=== PATIENT | male | born 1970 | race Caucasian/White ===

== ENCOUNTER 2021-01-21 07:43 | Inpatient (IN) | payer OTHER ==
[~2021-01-21] VITALS: Ht 165.1 cm; Wt 90.7 kg
[2021-01-21] MEDS ORDERED: DEXAMETHASONE SOD PHOS 10 MG/1 ML VIAL IV STA (07:52)
[2021-01-21] MEDS ORDERED: ASPIRIN 81 MG CHEW TAB PO ONE (08:00)
[2021-01-21] MEDS ORDERED: PIPERACILLIN/TAZOBAC 3.375 GM in SODIUM CHLORIDE 0.9% 50ML 50 ML IV SCH (08:00)
[2021-01-21] MEDS ORDERED: SODIUM CHLORIDE 0.9% 1000ML 1,000 ML IV STA ×2 (08:01)
[2021-01-21 08:20] LABS: BASOPHILS % 0.3 % (0.0-1.0); EOSINOPHILS # (AUTO) 0.1 (0.0-0.4); EOSINOPHILS % 1.4 % (0.0-6.0); HEMATOCRIT 40.7 % (38.2-49.6); HEMOGLOBIN 13.7 g/dL (14.0-18.0); LYMPHOCYTES # (AUTO) 1.4 (1.0-3.2); LYMPHOCYTES % 20.4 % (18.0-39.1); MEAN CORPUSCULAR HEMOGLOBIN 28.8 pg (28-32); MEAN CORPUSCULAR HGB CONC 33.7 g/dL (31-35); MEAN CORPUSCULAR VOLUME 85.5 fL (81-99); MONOCYTES # (AUTO) 0.4 (0.2-0.8); NEUTROPHILS % 72.3 % (38.7-80.0); PLATELET COUNT 281 x10e3/uL (140-360); RED BLOOD COUNT 4.76 x10e6/uL (4.3-5.7); RED CELL DISTRIBUTION WIDTH 12.3 % (11.7-14.4)
[2021-01-21 08:42] LABS: ALANINE AMINOTRANSFERASE 85 IU/L (0-55); ALBUMIN/GLOBULIN RATIO 0.7 (0.8-2.0); ALKALINE PHOSPHATASE 65 IU/L (40-150); ANION GAP 15.2 mmol/L (8-16); BLOOD UREA NITROGEN 17 mg/dL (7-26); BUN/CREATININE RATIO 24 (6-25); CALCIUM 8.7 mg/dL (8.4-10.2); CARBON DIOXIDE 27 mmol/L (22-29); CHLORIDE 103 mmol/L (98-107); CREATINE KINASE 50 IU/L (30-200); CREATININE, SERUM 0.71 mg/dL (0.72-1.25); EST GLOMERULAR FILTRATION RATE > 60 ML/MIN (60-); GLUCOSE 121 mg/dL (74-118); POTASSIUM 3.2 mmol/L (3.5-5.1); SODIUM 142 mmol/L (136-145)
[2021-01-21 09:05] LABS: ABG HCO3 25 mmol/L (22-26); ABG PCO2 37 mmHg (35-45); ABG PH 7.43 (7.35-7.45); ABG PO2 65 mmHg (80-105); ABG TCO2 26
[2021-01-21] MEDS ORDERED: KETOROLAC TROMETHAMINE 30 MG/ML VIAL IV STA (09:14)
[2021-01-21] MEDS ORDERED: GUAIFENESIN/CODEINE 10 ML CUP PO PRN (10:30)
[2021-01-21] MEDS: ENOXAPARIN SOD INJ 40 MG/0.4 ML SYR SC SCH ×2 (11:09→21:11)
[2021-01-21] MEDS: CEFTRIAXONE SOD 1 GM in SODIUM CHLORIDE 0.9% 50ML 50 ML IV SCH (11:09)
[2021-01-21] MEDS: AZITHROMYCIN 500MG/NS 250 ML 250 ML IV SCH (11:09)
[2021-01-21 11:45] VITALS: BP 137/76
[2021-01-21 11:50] VITALS: BP 137/76
[2021-01-21] MEDS ORDERED: SODIUM CHLORIDE 0.9% 250ML 250 ML ONE (12:31)
[2021-01-21] MEDS ORDERED: REMDESIVIR 200MG/NS 100ML 200 MG in SODIUM CHLORIDE 0.9% 100 ML 100 ML IV ONE (13:00)
[2021-01-21] MEDS ORDERED: POTASSIUM CHLORIDE 10MEQ EA PO ONE (15:15)
[2021-01-21] MEDS ORDERED: ACETAMINOPHEN 325 MG TAB PO PRN (15:15)
[2021-01-21 15:55] VITALS: BP 157/86
[2021-01-21 16:45] VITALS: BP 157/86
[2021-01-21 17:53] LABS: CREATINE KINASE MB 0.5 ng/mL (0-5.0)
[2021-01-21 20:00] VITALS: BP 142/83
[2021-01-21] MEDS ORDERED: ZOLPIDEM TARTRATE 5 MG TAB PO PRN (21:00)
[2021-01-22 02:05] LABS: CREATINE KINASE MB 0.5 ng/mL (0-5.0)
[2021-01-22 06:08] LABS: BASOPHILS % 0.1 % (0.0-1.0); HEMATOCRIT 41.3 % (38.2-49.6); HEMOGLOBIN 13.9 g/dL (14.0-18.0); LYMPHOCYTES % 23.9 % (18.0-39.1); MEAN CORPUSCULAR HEMOGLOBIN 28.7 pg (28-32); MEAN CORPUSCULAR HGB CONC 33.7 g/dL (31-35); MEAN CORPUSCULAR VOLUME 85.3 fL (81-99); MONOCYTES # (AUTO) 0.4 (0.2-0.8); MONOCYTES % 4.9 % (4.4-11.3); NEUTROPHILS # (AUTO) 5.7 (2.1-6.9); NEUTROPHILS % 70.1 % (38.7-80.0); PLATELET COUNT 321 x10e3/uL (140-360); RED BLOOD COUNT 4.84 x10e6/uL (4.3-5.7); RED CELL DISTRIBUTION WIDTH 11.9 % (11.7-14.4)
[2021-01-22 06:40] LABS: ALANINE AMINOTRANSFERASE 75 IU/L (0-55); ALBUMIN 2.8 g/dL (3.5-5.0); ALBUMIN/GLOBULIN RATIO 0.7 (0.8-2.0); ALKALINE PHOSPHATASE 65 IU/L (40-150); ANION GAP 14.7 mmol/L (8-16); BLOOD UREA NITROGEN 13 mg/dL (7-26); BUN/CREATININE RATIO 20 (6-25); CALCIUM 8.6 mg/dL (8.4-10.2); CARBON DIOXIDE 24 mmol/L (22-29); CHLORIDE 107 mmol/L (98-107); CREATININE, SERUM 0.66 mg/dL (0.72-1.25); EST GLOMERULAR FILTRATION RATE > 60 ML/MIN (60-); GLUCOSE 87 mg/dL (74-118); POTASSIUM 3.7 mmol/L (3.5-5.1); SODIUM 142 mmol/L (136-145)
[2021-01-22 07:46] VITALS: BP 125/73
[2021-01-22 07:52] VITALS: BP 125/73
[2021-01-22] MEDS ORDERED: CEFTRIAXONE SOD 1 GM/50 ML BAG IV SCH (09:00)
[2021-01-22 09:31] LABS: LYMPHOCYTES % (MANUAL) 21 % (19-48); MONOCYTES % (MANUAL) 3 % (3.4-9.0); NEUTROPHILS % (MANUAL) 73 % (40-74)
[2021-01-22] MEDS: ENOXAPARIN SOD INJ 40 MG/0.4 ML SYR SC SCH ×2 (09:48→21:00)
[2021-01-22] MEDS: DEXAMETHASONE SOD PHOS 10 MG/1 ML VIAL IV SCH (09:48)
[2021-01-22] MEDS: ZINC SULFATE 220 MG CAP PO SCH (09:48)
[2021-01-22] MEDS: AZITHROMYCIN 500MG/NS 250 ML 250 ML IV SCH ×2 (09:48→09:58)
[2021-01-22] MEDS ORDERED: CEFTRIAXONE SOD 1 GM VIAL ONE (12:07)
[2021-01-22] MEDS ORDERED: SODIUM CHLORIDE 0.9% 50ML 50 ML ONE (12:08)
[2021-01-22] MEDS: CEFTRIAXONE SOD 1 GM in SODIUM CHLORIDE 0.9% 50ML 50 ML IV SCH (12:11)
[2021-01-22 14:01] LABS: CHOL/HDL RATIO 4.9 (3.9-4.7)
[2021-01-22] MEDS: REMDESIVIR 100MG/NS 100ML 100 MG IV SCH (15:30)
[2021-01-22 17:50] VITALS: BP 125/73
[2021-01-22 20:00] VITALS: BP 125/73
[2021-01-22 21:40] VITALS: BP 130/80
[2021-01-23] VITALS (7 sets, daily range): BP systolic 120–140; BP diastolic 65–79
[2021-01-23] MEDS: ZINC SULFATE 220 MG CAP PO SCH (08:00)
[2021-01-23] MEDS: DEXAMETHASONE SOD PHOS 10 MG/1 ML VIAL IV SCH (08:00)
[2021-01-23] MEDS: ENOXAPARIN SOD INJ 40 MG/0.4 ML SYR SC SCH ×2 (08:00→21:00)
[2021-01-23] MEDS: AZITHROMYCIN 500MG/NS 250 ML 250 ML IV SCH (10:44)
[2021-01-23] MEDS ORDERED: CEFTRIAXONE SOD 1 GM VIAL ONE (12:50)
[2021-01-23] MEDS ORDERED: SODIUM CHLORIDE 0.9% 50ML 50 ML ONE (12:51)
[2021-01-23] MEDS: CEFTRIAXONE SOD 1 GM in SODIUM CHLORIDE 0.9% 50ML 50 ML IV SCH (12:55)
[2021-01-23] MEDS: REMDESIVIR 100MG/NS 100ML 100 MG IV SCH (14:12)
[2021-01-23] MEDS: LACTOBACILLUS ACIDOPHILUS CAPSULE PO SCH (16:53)
[2021-01-24] VITALS (9 sets, daily range): BP systolic 102–130; BP diastolic 62–82
[2021-01-24 06:38] LABS: ALANINE AMINOTRANSFERASE 75 IU/L (0-55); ALBUMIN 2.8 g/dL (3.5-5.0); ALBUMIN/GLOBULIN RATIO 0.8 (0.8-2.0); ALKALINE PHOSPHATASE 60 IU/L (40-150); BLOOD UREA NITROGEN 16 mg/dL (7-26); BUN/CREATININE RATIO 24 (6-25); CALCIUM 8.2 mg/dL (8.4-10.2); CARBON DIOXIDE 27 mmol/L (22-29); CHLORIDE 106 mmol/L (98-107); CREATININE, SERUM 0.67 mg/dL (0.72-1.25); EST GLOMERULAR FILTRATION RATE > 60 ML/MIN (60-); GLUCOSE 65 mg/dL (74-118); SODIUM 140 mmol/L (136-145)
[2021-01-24] MEDS: DEXAMETHASONE SOD PHOS 10 MG/1 ML VIAL IV SCH (08:02)
[2021-01-24] MEDS: ENOXAPARIN SOD INJ 40 MG/0.4 ML SYR SC SCH ×2 (08:02→21:11)
[2021-01-24] MEDS: ZINC SULFATE 220 MG CAP PO SCH (08:02)
[2021-01-24] MEDS: LACTOBACILLUS ACIDOPHILUS CAPSULE PO SCH ×2 (08:02→16:53)
[2021-01-24] MEDS: AZITHROMYCIN 500MG/NS 250 ML 250 ML IV SCH (10:51)
[2021-01-24] MEDS: CEFTRIAXONE SOD 1 GM in SODIUM CHLORIDE 0.9% 50ML 50 ML IV SCH (13:00)
[2021-01-24] MEDS ORDERED: CEFTRIAXONE SOD 1 GM VIAL ONE (13:18)
[2021-01-24] MEDS: REMDESIVIR 100MG/NS 100ML 100 MG IV SCH (14:24)
[2021-01-25 04:00] VITALS: BP_SYST 113; BP_SYST 120; BP_DIAS 64; BP_DIAS 65
[2021-01-25 08:00] VITALS: BP 115/71
[2021-01-25] MEDS: ZINC SULFATE 220 MG CAP PO SCH (08:57)
[2021-01-25] MEDS: LACTOBACILLUS ACIDOPHILUS CAPSULE PO SCH (08:57)
[2021-01-25] MEDS: DEXAMETHASONE SOD PHOS 10 MG/1 ML VIAL IV SCH (08:57)
[2021-01-25] MEDS: ENOXAPARIN SOD INJ 40 MG/0.4 ML SYR SC SCH (08:57)
[2021-01-25 09:07] VITALS: BP 113/64
[2021-01-25 11:38] VITALS: BP 104/53
[2021-01-25] MEDS: AZITHROMYCIN 500MG/NS 250 ML 250 ML IV SCH (11:39)
[2021-01-25] MEDS: CEFTRIAXONE SOD 1 GM in SODIUM CHLORIDE 0.9% 50ML 50 ML IV SCH (12:57)
[2021-01-25] MEDS ORDERED: CEFTRIAXONE SOD 1 GM VIAL ONE (12:58)
[2021-01-25] MEDS ORDERED: SODIUM CHLORIDE 0.9% 50ML 50 ML ONE (12:59)
[2021-01-25] MEDS: REMDESIVIR 100MG/NS 100ML 100 MG IV SCH (14:05)
[2021-01-25 15:10] VITALS: BP 124/69
[2021-01-25] MEDS ORDERED: ZINC SULFATE50 MG PO (15:42)
== END 2021-01-25 17:00 | disposition home or self-care (01) | DRG 177 ==
LOC: ER 08:05 → ERHOLD 09:23 → MED/SURG3 11:35 → IMCU 01-24 12:19
PROVIDERS: ADMIT Internal Medicine; ATTEND Internal Medicine
PROC: 8E0ZXY6 Isolation (ICD-10-PCS; principal; 2021-01-21)
PROC: XW033E5 Introduction of Remdesivir Anti-infective into Peripheral Vein, Percutaneous Approach, New Technology Group 5 (ICD-10-PCS; 2021-01-22)
DX: U07.1 COVID-19 (principal); J12.9 Viral pneumonia, unspecified; J18.9 Pneumonia, unspecified organism; J96.01 Acute respiratory failure with hypoxia; B19.9 Unspecified viral hepatitis without hepatic coma; E87.6 Hypokalemia
CPT/HCPCS: 36415; 36600; 71045; 80053; 80061; 82550; 82553; 82805; 83605; 83880; 84484; 85025; 85379; 87040; 93005; 99284; J0456; J0696; J1100; J1650; J1885; J2543; J7030; J7050; U0002